=== PATIENT | male | born 1990 | race African-American/Black ===

== ENCOUNTER 2020-12-05 21:38 | Emergency (ER) | payer OTHER ==
[~2020-12-05] VITALS: Ht 175.3 cm; Wt 82.7 kg
[2020-12-05] MEDS ORDERED: LIDOCAINE/EPI/TETRACAINE TOPICAL GEL 3 ML. TP ONE (21:59)
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
[2020-12-05] MEDS: IBUPROFEN 600 MG TABLET. PO ONE (22:46)
[2020-12-05] MEDS: LIDOCAINE/EPI/TETRACAINE TOPICAL GEL 3 ML. TP ONE (22:46)
[2020-12-05] MEDS: oxyCODONE/APAP 5/325 1 TAB TABLET PO ONE (22:46)
[2020-12-05] MEDS: DIPH,PERTUSS(ACELL),TET VAC/PF 0.5 ML SYRINGE. VAX IM ONE (23:31)
[2020-12-05 23:46] VITALS: BP 152/87
== END 2020-12-05 23:46 | disposition short-term general hospital (02) ==
LOC: EEVIPCON 21:38 → ER 21:38
DX: S01.112A Laceration without foreign body of left eyelid and periocular area, initial encounter (principal); Y08.89XA Assault by other specified means, initial encounter; Y93.89 Activity, other specified; Y92.89 Other specified places as the place of occurrence of the external cause; Y99.8 Other external cause status
CPT/HCPCS: 12013; 90471; 90715; 99285-25